=== PATIENT | female | born 1935 | race Caucasian/White ===

== ENCOUNTER 2017-05-16 12:25 | Inpatient (IN) | payer OTHER ==
[2017-05-16] MEDS ORDERED: BACITRACIN 0.9 GM PACKET OINT TOPICAL ONE (13:12)
[2017-05-16] MEDS ORDERED: NORMAL SALINE 10 ML SYRINGE FLUSH IVP PRN ×4 (13:14→20:37)
[2017-05-16] MEDS ORDERED: Sodium Chloride 0.9% 1,000 ML PRIMARY IV ONE ×2 (13:14→13:15)
[2017-05-16] MEDS ORDERED: ONDANSETRON 4 MG/2 ML VIAL IVP ONE (13:14)
--- NOTE | 2017-05-16 13:20 | DI ---
XR HIP COMPLETE MIN 2VW U/L,05/16/2017 12:37 PM: Clinical History: Fall with left hip pain. Previous Exam: None at this facility. Findings: 3 views of the left hip are obtained, and demonstrate a slightly displaced subcapital left femoral ne ck fracture. A nonobstructive bowel gas pattern is seen. Mild degenerative changes of the lumbar spine are noted. No pathologic calcifications are seen. Impression: Left subcapital femoral neck fracture.
--- NOTE | 2017-05-16 13:31 | PDOC ---
Lower Extremity Injury HPI - General Chief Complaint: Lower Extremity Problem/Injury Stated Complaint: FALL Date Seen by Provider: 05/16/17 Time Seen by Provider: 12:30 Source: POSITIVE: Patient Exam Limitations: POSITIVE: No limitations Nurse's Notes Reviewed & Considered: Yes - History of Present Illness Initial Comments: The patient is a 81-year-old female who presents to the emergency department with left hip pain after a fall. She states that she was outside walking. She states that her legs were moving faster than she was and she lost her balance and fell. She landed primarily on her left hip. She also scraped her right wrist. She states that she was able to assist herself back to a standing position using a mailbox. She subsequently was able to walk back home slowly using the fence to assist her which was about a block and a half. She states that after getting home her left hip seem to be hurting even more and she now has a hard time even moving the left leg at the hip joint. She denies hitting her head and denies any loss of consciousness. She does have a scrape on her right wrist however denies wrist pain. She does have a history of osteoporosis. She does not take any blood thinner medications. Have you received a tetanus shot in the past 10 years?: Unknown - Patient Home Medications Home Medications: Home Medications Latanoprost [Xalatan] 1 drop OP QHS drop 04/19/16 Losartan Potassium 1 tab PO DAILY tab 04/19/16 - Patient Allergies Allergies/Adverse Reactions: Allergies Allergy/AdvReac Type Severity Reaction Status Date / Time Penicillins AdvReac Unknown NOT Verified 05/16/17 18:40 APPLICABLE Past Medical History - heen HEENT History: Glaucoma Cardiovascular History: Hypertension Respiratory History: Denies History Gastrointestinal History: Denies History Genitourinary History: Denies History Endocrine History: Denies History Musculoskeletal History: Arthritis Prosthesis or Implant: No Neurological History: Denies History Blood Disorders: Denies History Psychiatric History: Denies History History of Sexually Transmitted Diseases: No Female Reproductive History: Denies History Obstetrical History: Denies History Cancer History: Denies History In Past Year Been Physically Harmed or Verbally Threatened: No History of MDRO: No History of Other Communicable Diseases: No Tobacco Use: Never Smoker Alcohol Use: Rarely Substance Use Type: None Previous Surgical History: No Anesthesia Reactions: No Malignant Hyperthermia: No Family History of Malignant Hyperthermia: No Significant Family History: No pertinent family hx Past Medical History Reviewed: Reviewed - No Changes ROS - Limitations ROS Limitations: No Limitations Constitution: DENIES: Chills, Fever Cardiovascular: REPORTS: Denies Cardiac Symptoms Respiratory: REPORTS: Denies Resp Symptoms Neurological: REPORTS: Denies Neuro Symptoms Gastrointestinal: REPORTS: Denies GI Symptoms Musculoskeletal: REPORTS: Other (Scrape to the right wrist and left hip pain). DENIES: Back Pain, Neck Pain Eyes: REPORTS: Denies Symptoms ENT: REPORTS: Denies Symptoms Lower Ext Complaint Exam - General Appearance General Appearance: POSITIVE: Alert, Cooperative, No Acute Distress - Extremities Lower Extremity: POSITIVE: Other (Examination left lower extremity reveals no evidence of shortening or rotation, she has no tenderness to the knee or distal leg/ankle. She does have some mild tenderness to compression of the pelvis on the left side. She does have pain with any range of motion of the left hip, good dorsalis pedis pulse in the left foot. Examination of the right wrist reveals an abrasion approximately 2-3 cm in diameter with no active bleeding, good range of motion and no bony tenderness or deformity.) Neurovascular/Tendon: POSITIVE: Sensation Normal, Motor Normal, No Vascular Compromise - HEENT HEENT: POSITIVE: Head Inspection Nml - Neck / Back Neck/Back: POSITIVE: Normal Inspection, Non-Tender - Respiratory / CVS Respiratory / CVS: POSITIVE: Chest Non Tender, Breath Sounds Normal, No Respiratory Distress, Heart Sounds Normal, Regular Rate/Rhythm Peripheral Pulses: Dorsalis-pedis (L): 2+ - Abdomen Abdomen: Soft: (All Quadrants), Denies Tenderness: (All Quadrants), No Distention: (All Quadrants) Lower Ext Complaint Progress - Results Reviewed by me Xrays/CTs/US Reviewed by me: Yes Discussed with Radiologist: Yes Radiology Findings: X-ray of the left hip reveals a left femoral neck fracture which is minimally displaced and impacted, no other acute abnormalities per radiologist. Lab Results:: Laboratory Results 05/16/17 05/16/17 Range/Units 13:00 13:31 WBC 9.69 (4.8-10.8) 10^3/uL RBC 4.43 (4.20-5.40) 10^6/uL Hgb 13.0 (12.0-16.0) g/dL Hct 38.5 (37.0-47.0) % MCV 86.9 (81-99) FL MCH 29.3 (27-31) PG MCHC 33.8 (33-37) g/dL RDW Std Deviation 41.6 (39-50) fL RDW Coeff of Tucker 13.4 (11.5-14.5) % Plt Count 322 (140-350) 10*3/uL MPV 10.6 (7.4-12.2) FL Immature Gran % (Auto) 0.2 (0-5) % Neut % (Auto) 75.8 (50-80) % Lymph % (Auto) 14.0 (10-50) % [place] % (Auto) 8.8 (5-15) % Eos % (Auto) 0.9 (0-8) % Baso % (Auto) 0.3 (0-1) % Immature Gran # (Auto) 0.02 10*3/UL Neut # (Auto) 7.34 10*3/UL Lymph # (Auto) 1.36 10*3/uL [place] # (Auto) 0.85 H (0.3-0.8) 10*3/UL Eos # (Auto) 0.09 10*3/UL Baso # (Auto) 0.03 10*3/UL WBC Morphology Comment Normal morphology (NORM) Plt Morphology Comment Normal morphology (NORM) RBC Morph Comment Normal morphology (NORM) PT 10.0 (9.7-11.4) secs INR 0.94 (0.00-5.90) N/A Sodium 132 L (135-145) meq/L Potassium 4.2 (3.8-5.2) meq/L Chloride 100 (98-112) meq/L Carbon Dioxide 23 (23-33) meq/L Anion Gap 9 (5-20) BUN 13 (7-22) mg/dL Creatinine 0.6 (0.50-1.20) mg/dL Estimated GFR (>60 ml/min/1.73m(2)) BUN/Creatinine Ratio 21.66 H (6-20) Glucose 95 (78-110) mg/dL Calculated Osmolality 273.0 (267-292) mOsm/kg Calcium 9.1 (8.7-10.7) mg/dL Total Bilirubin 0.6 (0.3-1.2) mg/dL AST 24 (8-39) IU/L ALT 26 (9-52) IU/L Alkaline Phosphatase 49 (38-126) IU/L Total Protein 6.9 (6.1-8.0) g/dL Albumin 4.2 (3.5-4.8) g/dL Globulin 2.7 (2.50-4.10) g/dL Albumin/Globulin Ratio 1.50 (1.3-2.0) mg/g - Patient's Progress MDM / ED Course: X-rays were obtained shortly after arrival and confirm that she does have a left femoral neck fracture. An IV was subsequently established and the patient did receive morphine 2 mg and Zofran 4 mg IV for pain. I did contact Dr. Bernal who is on-call for orthopedic surgery. He recommended hospitalist admission and he will see the patient in consultation for her hip. These findings and recommendations were discussed with the patient and her family and the patient is in agreement with this plan. - Consult Counseled: POSITIVE: Patient, Family, RE: Radiology Results, RE: DX Patient Care Time - Estimated PCT Patient Care Time (In Minutes): 30 Vital Signs - VS Reviewed Vital Signs Reviewed: Yes Discharge Clinical Impression: Fracture of femoral neck, left Qualifiers: Qualifier Code: (S72.002A) Fracture of unspecified part of neck of left femur, initial encounter for closed fracture Discharge Disposition: Admit to Inpatient Condition: Fair Date Decision to Admit to Inpatient: 05/16/17 Time Decision to Admit to Inpatient: 01:30
[2017-05-16] MEDS: MORPHINE SULFATE 2 MG/1 ML IVP ONE ×2 (13:38→15:53)
[2017-05-16 13:48] LABS: BASOPHILS # (AUTO) 0.03 10*3/UL; BASOPHILS % (AUTO) 0.3 % (0-1); EOSINOPHILS # (AUTO) 0.09 10*3/UL; EOSINOPHILS % (AUTO) 0.9 % (0-8); HEMATOCRIT 38.5 % (37.0-47.0); LYMPHOCYTES # (AUTO) 1.36 10*3/uL; MEAN CORPUSCULAR HEMOGLOBIN 29.3 PG (27-31); MEAN CORPUSCULAR HGB CONC 33.8 g/dL (33-37); MEAN CORPUSCULAR VOLUME 86.9 FL (81-99); MEAN PLATELET VOLUME 10.6 FL (7.4-12.2); MONOCYTES # (AUTO) 0.85 10*3/UL (0.3-0.8); MONOCYTES % (AUTO) 8.8 % (5-15); NEUTROPHILS # (AUTO) 7.34 10*3/UL; NEUTROPHILS % (AUTO) 75.8 % (50-80); RED BLOOD COUNT 4.43 10^6/uL (4.20-5.40)
[2017-05-16 13:49] LABS: PLATELET MORPHOLOGY COMMENT NORMAL MORPHOLOGY (NORM); RBC MORPHOLOGY COMMENT NORMAL MORPHOLOGY (NORM); WBC MORPHOLOGY COMMENT NORMAL MORPHOLOGY (NORM)
[2017-05-16 13:57] LABS: BUN/CREATININE RATIO 21.66 (6-20); CALCIUM 9.1 mg/dL (8.7-10.7); SERUM ALBUMIN 4.2 g/dL (3.5-4.8)
[2017-05-16] MEDS ORDERED: MORPHINE SULFATE 4 MG/1 ML IVP ONE (14:07)
[2017-05-16] MEDS ORDERED: HYDROmorphone 2 MG/1 ML IVP PRN ×2 (14:43→20:37)
[2017-05-16] MEDS ORDERED: LIDOCAINE W/ SODIUM BICARB 0.5 ML SYR SUBD PRN (14:43)
[2017-05-16] MEDS ORDERED: HYDROcodone-APAP 5 MG -325 MG TABLET PO PRN (14:43)
--- NOTE | 2017-05-16 15:23 | PDOC ---
History and Physical - History of Present Illness Date and Time of Service: 05/16/2017, 1520 Chief Complaint: Fall with left hip pain History of Present Illness: This is a very pleasant 81-year-old female who has underlying hypertension and glaucoma as her major medical issues who was walking today to the mailboxes for her daily exercise routine when she felt like her feet were tangled up and moving faster than she was. She had a fall as a result of this. No chest pain and no shortness breath at the time of the fall. She's not had this happen before and denies any sort of pill roll tremor. She denies any shuffling on a regular basis but states that she tries to shuffle her feet at home so that she does not trip over the dogs. She was able to climb back up holding the mailbox and walked back to her house but started having pain on the left hip. She states it radiated into her groin. Pain medications in the emergency room did help but made her a little hypoxic. Nothing seemed to make it worse although I did note that it seemed worse with movement in the bed on exam. Past Medical History Medical History: 1. Hypertension. 2. Glaucoma Surgical History: 1. Hysterectomy. 2. Appendectomy. 3. Cataracts Pertinent Family History: No family history of heart disease. Past Social History: Does not smoke or drink. . Had 6 children but 3 have passed on. Tobacco Use: Never Smoker Do you dip or chew tobacco: No Substance Use Type: None Alcohol Use: None Medication / Allergies Home Medications: Home Medications Medication Instructions Recorded Confirmed Type Latanoprost [Xalatan] 1 drop OP QHS drop 04/19/16 05/16/17 History Losartan Potassium 1 tab PO DAILY tab 04/19/16 05/16/17 History Allergies/Adverse Reactions: Allergies Allergy/AdvReac Type Severity Reaction Status Date / Time Penicillins AdvReac Unknown NOT Verified 05/16/17 12:33 APPLICABLE Review of Systems - Review of Systems All Systems: Reviewed & No Additional Complaints Except as Stated (I did a 12 point review systems and it is negative other than that discussed in history present illness and that noted below.) - Musculoskeletal Musculoskeletal: REPORTS: Swelling (Right hand swelling with abrasion injury.) Exam - Vitals Vital Signs: Vital Signs Temperature 98.2 F Temperature Source Temporal Artery Scan Pulse Rate [Pulse Oximeter 79 Bilateral Radial] Pulse Rate 72 Respiratory Rate 14 Blood Pressure [Right Arm] 171/81 Blood Pressure 170/83 Pulse Ox 96 Oxygen Flow Rate 3 Oxygen Delivery Method Nasal Cannula - General General Appearance: POSITIVE: No Acute Distress, Cooperative - Head Head Exam: POSITIVE: Normal Inspection, Normocephalic, Atraumatic - Eye Eye Exam: POSITIVE: No Scleral Icterus Results - Labs CBC and BMP: 05/16/17 13:31 05/16/17 13:31 - Imaging Status: Image Reviewed by Me (On my view of the pelvic x-ray the patient has a left-sided subcutaneous O femoral neck fracture.) Assessment and Plan - Patient Problems (1) Fracture of femoral neck, left Current Visit: Yes Status: Acute Qualifiers: Encounter type: initial encounter Fracture type: closed Qualified Description: Closed fracture of neck of left femur, initial encounter Qualifier Code(s): (S72.002A) Fracture of unspecified part of neck of left femur , initial encounter for closed fracture (2) Hypertension Current Visit: Yes Status: Acute Qualifiers: Hypertension type: essential hypertension Qualified Description: Essential hypertension Qualifier Code(s): (I10) Essential (primary) hypertension (3) Glaucoma Current Visit: Yes Status: Acute Qualifiers: Glaucoma type: unspecified Laterality: unspecified laterality Qualified Description: Glaucoma, unspecified glaucoma type, unspecified laterality Qualifier Code(s): (H40.9) Unspecified glaucoma - Assessment / Plan Additional Assessment/Plan Details: Admit the patient. Pain control and antiemetics of the written for. I will keep the patient nothing by mouth until orthopedics sees the patient. Dr. Bernal was notified from the emergency room. It may be that surgery will take place tomorrow and we'll advance diet if that is the case. IV fluids. We'll get an EKG. Hold off on losartan due to the perioperative association with renal failure and prerenal azotemia When necessary medications for blood pressure control. I think the patient will likely need rehabilitation. DVT prophylaxis as per orthopedics. Patient doesn't want catheter placed until time of surgery. Check CBC tomorrow. patient is DO NOT RESUSITATE, I discussed with patient. Patietn agrees with the plan.
--- NOTE | 2017-05-16 15:45 | EKG ---
[address] [address] Measurements Intervals [place] Rate: 77 P: 71 WI: 174 QRS: 64 QRSD: 84 T: 69 QT: 389 QTc: 421 Interpretive Statements SINUS RHYTHM POSSIBLE RIGHT ATRIAL ENLARGEMENT LEFT ATRIAL ENLARGEMENT No previous ECG available for comparison Electronically Signed On 05-16-17 17:16:40 MDT by Agustin Newman [email or web address]
[2017-05-16] MEDS: Sodium Chloride 0.9% 1,000 ML PRIMARY IV SCH (15:54)
[2017-05-16] MEDS: ONDANSETRON 4 MG/2 ML VIAL IVP PRN ×2 (17:07→23:50)
[2017-05-16] MEDS ORDERED: Lactated Ringers 1,000 ML PRIMARY IV ONE ×2 (17:20→18:59)
[2017-05-16] MEDS ORDERED: MIDAZOLAM 5 MG/1 ML ONE (18:09)
[2017-05-16] MEDS ORDERED: ceFAZolin Inj 2gm (Premix) 50 ML IV ONE (18:10)
[2017-05-16] MEDS ORDERED: Sodium Chloride 0.9% vial 10 ML ONE (18:14)
[2017-05-16] MEDS ORDERED: MORPHINE SULFATE/PF 10 MG/10 ML AMPULE ONE (18:21)
--- NOTE | 2017-05-16 18:25 | DI ---
XR WRIST 2 VW,05/16/2017 5:47 PM: Clinical History: Right wrist pain Previous Exam: None at this facility. Findings: 2 views of the right wrist are obtained, and demonstrate diffuse osteopenia. Diffuse degenerative misty nges are noted worst at the first carpometacarpal joint consistent with osteoarthritis. The navicular is not well seen on this exam, but no fractures are identified. The lateral view, the distal ulna appears to be posteriorly displaced. This could be a true dislocati on of the distal radial ulnar joint, or projectional artifact. Impression: 1. No visible fracture. 2. Possible displacement of the distal right ulna. This could represent a distal radial ulnar joint d islocation. Correlate clinically. These findings discussed with Dr. Bernal of Orthopedics.
[2017-05-16 18:40] LABS: BILIRUBIN,URINE NEGATIVE (NEG); CLARITY,URINE CLEAR (CLEAR); COLOR,URINE YELLOW; GLUCOSE, URINE (UA) NEGATIVE (NEG); NITRATE,URINE NEGATIVE (NEG); OCCULT BLOOD,URINE Trace-intact (NEG); PROTEIN,URINE NEGATIVE (NEG); UROBILINOGEN,URINE 0.2 EU/dL (0.2)
[2017-05-16 18:43] LABS: BACTERIA,URINE RARE; RBC,URINE 0-2 /hpf; URINE SAMPLE TYPE CATH SPECIMEN; WBC,URINE 0-2
[2017-05-16] MEDS ORDERED: BUPIVACAINE 0.25% W/ EPI - 10 ML VIAL ONE (19:47)
[2017-05-16] MEDS ORDERED: BISACODYL 10 MG SUPPOSITORY RECTAL PRN (20:33)
[2017-05-16] MEDS ORDERED: MAG HYDROX/AL HYDROX/SIMETH 30 ML SUSP PO PRN (20:33)
[2017-05-16] MEDS ORDERED: Prochlorperazine Tab 10 MG TAB PO PRN (20:33)
[2017-05-16] MEDS ORDERED: Ondansetron ODT Tab 8 MG TAB PO PRN (20:33)
[2017-05-16] MEDS ORDERED: ACETAMINOPHEN 325 MG TABLET PO PRN (20:33)
[2017-05-16] MEDS ORDERED: BISACODYL 5 MG TABLET PO PRN (20:33)
[2017-05-16] MEDS ORDERED: diphenhydrAMINE 25 MG CAPSULE PO PRN (20:33)
[2017-05-16] MEDS ORDERED: ONDANSETRON 4 MG/2 ML VIAL IVP PRN (20:33)
[2017-05-16] MEDS ORDERED: oxyCODONE-ACETAMINOPHEN 5-325 TAB PO PRN (20:33)
[2017-05-16] MEDS ORDERED: IBUPROFEN 400 MG TABLET PO PRN (20:33)
[2017-05-16] MEDS ORDERED: MORPHINE SULFATE 2 MG/1 ML IVP PRN (20:33)
[2017-05-16] MEDS ORDERED: CALCIUM CARBONATE 500 MG (TUMS) CHEWABLE TABLET PO PRN ×2 (20:33)
[2017-05-16] MEDS ORDERED: Nalbuphine Inj 20 MG/ML Ampule IVP PRN (20:37)
--- NOTE | 2017-05-16 20:41 | CRNA.PROCE ---
Central Neuraxis Block Placemt - - Safety Measures: Time Out Taken, Site Verified - - Type of Block: Subarachnoid Reason for Block: Surgical Moniters Used During Block: EKG, SPO2, NIBP Sedation Used - Enter Amount Used in Comment Field: Midazolam (mg): Yes (1mg) Positioning: Lateral Skin Prep Used: ChloroPrep Draped: No Skin Infiltration - Enter Amount Used in Comment Field: 1% Xylocaine (mL): Yes ( skin wheal) Spinal Needle Used: 25 Ba 80 mm Local Anesthetic - Enter Amount Used in Comment Field: 0.75 % Bupivacaine with Dextrose (ml): Yes (7.5mg) Additive Used - Enter Amount Used in Comment Field: Preservative Free Morphine ( mg): Yes (100mcg) Bioclusive Dressing Applied: No - - Additional Details: positive birefringence
[2017-05-16] MEDS ORDERED: Lactated Ringers 1,000 ML PRIMARY IV SCH ×2 (20:45)
--- NOTE | 2017-05-16 20:52 | PDOC(PROG) ---
General Note Progress Note: BRIEF OP NOTE PRE-OP DIAGNOSIS: Left subcapital femoral neck fracture - valgus impacted POST-OP DIAGNOSIS: Same SURGERY: ORIF Left Hip Fracture SURGEON: Jovanni Bernal MD ANESTHESIA: Spinal with IV sedation BLOOD LOSS: 10ml SPECIMENS: None IMPLANTS: 7mm x 85mm, 7mm x 85mm, and 7mm x 90mm Canulated Partially Threaded Screws. COMPLICATIONS: None
--- NOTE | 2017-05-16 20:57 | PDOC(PROG) ---
General Note Progress Note: ORTHO CONSULT NOTE: See dictated note to follow for details. IMP: 81yo female with left valgus impacted sub-capital femoral neck fracture PLAN: ORIF with canulated screws POSTOP: Patient is WBAT LLE. DVT prophylaxis with SCDs, and chemical prophylaxis - aspirin sufficient when she goes home if moving well. Jovanni Bernal MD Orthopedic Surgery
[2017-05-16] MEDS ORDERED: BRIMONIDINE TARTRATE OP SCH (21:00)
[2017-05-16] MEDS ORDERED: MORPHINE SULFATE 4 MG/1 ML IVP PRN (21:44)
[2017-05-16] MEDS: LATANOPROST 0.005% 2.5 ML EYE DROPS EACH EYE SCH (21:45)
[2017-05-16] MEDS ORDERED: MORPHINE SULFATE 10 MG/1 ML IV PRN (21:45)
[2017-05-16] MEDS: DOCUSATE 100 MG CAPSULE PO SCH (22:04)
[2017-05-17] MEDS: Sodium Chloride 0.9% 1,000 ML PRIMARY IV SCH ×3 (01:30→18:28)
[2017-05-17] MEDS: ceFAZolin Inj 2gm (Premix) 2 GM in Dextrose 1 BAG IV SCH ×2 (03:13→10:05)
[2017-05-17 05:41] LABS: BASOPHILS # (AUTO) 0.01 10*3/UL; BASOPHILS % (AUTO) 0.1 % (0-1); EOSINOPHILS # (AUTO) 0 10*3/UL; EOSINOPHILS % (AUTO) 0 % (0-8); HEMATOCRIT 35.9 % (37.0-47.0); LYMPHOCYTES # (AUTO) 0.63 10*3/uL; MEAN CORPUSCULAR HEMOGLOBIN 29.3 PG (27-31); MEAN CORPUSCULAR HGB CONC 33.4 g/dL (33-37); MEAN CORPUSCULAR VOLUME 87.8 FL (81-99); MONOCYTES # (AUTO) 1.03 10*3/UL (0.3-0.8); MONOCYTES % (AUTO) 7.7 % (5-15); NEUTROPHILS # (AUTO) 11.63 10*3/UL; NEUTROPHILS % (AUTO) 87.3 % (50-80); RED BLOOD COUNT 4.09 10^6/uL (4.20-5.40)
[2017-05-17 05:44] LABS: CALCIUM 7.7 mg/dL (8.7-10.7)
[2017-05-17 06:05] LABS: PLATELET MORPHOLOGY COMMENT NORMAL MORPHOLOGY (NORM); RBC MORPHOLOGY COMMENT NORMAL MORPHOLOGY (NORM); WBC MORPHOLOGY COMMENT NORMAL MORPHOLOGY (NORM)
[2017-05-17] MEDS: ONDANSETRON 4 MG/2 ML VIAL IVP PRN (07:03)
[2017-05-17] MEDS: PANTOPRAZOLE 40 MG TABLET PO SCH (07:08)
[2017-05-17] MEDS ORDERED: Metoclopramide Inj 10 MG/2 ML VIAL IVP PRN ×2 (07:16→14:54)
--- NOTE | 2017-05-17 07:29 | PDOC(PROG) ---
Date and Time of Service: 05/17/2017 Interval History: Subjective Patient complain from intermittent nasuea since she had the surgery. Otherwise she is denying other symptoms, no hip pain, no pain in the wrist no chest pain and no shortness of breath. No abdominal pain. Objective : Data - Labs CBC and BMP: 05/17/17 04:27 05/17/17 04:27 Labs - Last 24 Hours: Laboratory Results 05/16/17 05/16/17 05/17/17 Range/Units 17:07 18:37 04:27 WBC 13.32 H (4.8-10.8) 10^3/uL RBC 4.09 L (4.20-5.40) 10^6/uL Hgb 12.0 (12.0-16.0) g/dL Hct 35.9 L (37.0-47.0) % MCV 87.8 (81-99) FL MCH 29.3 (27-31) PG MCHC 33.4 (33-37) g/dL RDW Std Deviation 41.9 (39-50) fL RDW Coeff of Tucker 13.3 (11.5-14.5) % Plt Count 294 (140-350) 10*3/uL MPV 11.0 (7.4-12.2) FL Immature Gran % (Auto) 0.2 (0-5) % Neut % (Auto) 87.3 H (50-80) % Lymph % (Auto) 4.7 L (10-50) % [place] % (Auto) 7.7 (5-15) % Eos % (Auto) 0 (0-8) % Baso % (Auto) 0.1 (0-1) % Immature Gran # (Auto) 0.02 10*3/UL Neut # (Auto) 11.63 10*3/UL Lymph # (Auto) 0.63 10*3/uL [place] # (Auto) 1.03 H (0.3-0.8) 10*3/UL Eos # (Auto) 0 10*3/UL Baso # (Auto) 0.01 10*3/UL WBC Morphology Comment Normal morphology (NORM) Plt Morphology Comment Normal morphology (NORM) RBC Morph Comment Normal morphology (NORM) Sodium 133 L (135-145) meq/L Potassium 4.0 (3.8-5.2) meq/L Chloride 99 (98-112) meq/L Carbon Dioxide 25 (23-33) meq/L Anion Gap 9 (5-20) BUN 12 (7-22) mg/dL Creatinine 0.5 (0.50-1.20) mg/dL Estimated GFR (>60 ml/min/1.73m(2)) BUN/Creatinine Ratio 24.00 H (6-20) Glucose 135 H (78-110) mg/dL Calculated Osmolality 277.0 (267-292) mOsm/kg Calcium 7.7 L (8.7-10.7) mg/dL Ur Collection Type Cath specimen Urine Color Yellow Urine Clarity Clear (CLEAR) Urine pH 7.0 (5.0-8.5) Ur Specific [place] 1.015 (1.005-1.030) Urine Protein Negative (NEG) mg/dl Urine Glucose (UA) Negative (NEG) mg/dL Urine Ketones 15 (NEG) Urine Occult Blood Trace-intact H (NEG) Urine Nitrate Negative (NEG) Urine Bilirubin Negative (NEG) Urine Urobilinogen 0.2 (0.2) EU/dL Ur Leukocyte Esterase Trace (NEG) Urine RBC 0-2 (NONE) /hpf Urine WBC 0-2 (NONE) Ur Squamous Epith Cells None (NONE) Ur Renal Epithelial Cell None (NONE) Urine Crystals None Urine Bacteria Rare (NONE) Urine Casts None (NONE) Urine Mucus None (NONE) Urine Trichomonas None (NONE) Urine Yeast None (NONE) Ur Culture Indicated? Culture not set Blood Type A POSITIVE Antibody Screen Negative Objective : Exam - General General Appearance: Cooperative, Thin Additional General Exam Details: dry heaving. - Head Head Exam: Normal Inspection - Eye Eye Exam: Normal Appearance - ENT ENT Exam: Normal Exam - Neck Neck Exam: Normal Inspection - Respiratory Additional Respiratory Exam Details: minimal crackles at the bases - Cardiovascular Cardiovascular Exam: RRR - GI/Abdominal GI/Abdominal Exam: Normal Bowel Sounds, Non Tender, Non Distended, Soft - Rectal Rectal Exam: Deferred - External Exam: Deferred Exam: Deferred - Extremities Extremities Exam: Normal Inspection - Back Back Exam: Normal Inspection - Neurological Neurological Exam: Alert, Oriented x 3, Normal Gait, Speech Intact / Clear - Psychiatric Psychiatric Exam: Normal Affect Assessment and Plan - Patient Problems (1) Status post-operative repair of hip fracture Current Visit: Yes Status: Acute Comment: Continue curreny pain medications, she is compaining from nausea will write for reglan IV as needed. Continue Zofran. Fo DVT prophylaxis DR su put her on Aspirin and SCDs. (2) Hypertension Current Visit: Yes Status: Acute Comment: Will hold Losartan tonigh and watch her BP if start to go up will restart. Qualifiers: Hypertension type: essential hypertension Qualified Description: Essential hypertension Qualifier Code(s): (I10) Essential (primary) hypertension
--- NOTE | 2017-05-17 08:29 | CRNA.PROGR ---
Anesthesia Note Anesthesia Progress Note: Post OP Anesthesia Note Pt is resting in bed, she is complaining of nausea this morning but denies any pain. She received a dose of zofran and the nausea is subsiding. Otherwise the patient is doing well this morning. Current VSS. Vital Signs (Last 8 hours) Temp Pulse Resp BP Pulse Ox 05/17/17 07:25 97.6 F 91 17 145/74 94 05/17/17 07:00 94 14 05/17/17 05:20 93 05/17/17 05:00 97.4 F 100 16 134/63 94 05/17/17 00:47 97.4 F 87 16 156/75 94
[2017-05-17] MEDS: CHOLECALCIFEROL 1000 IU TABLET PO SCH (09:25)
[2017-05-17] MEDS: DOCUSATE 100 MG CAPSULE PO SCH ×2 (09:26→20:22)
[2017-05-17] MEDS: ASPIRIN 325 MG EC TABLET PO SCH ×2 (09:26→20:22)
--- NOTE | 2017-05-17 09:38 | DI ---
XR HIP COMPLETE MIN 2VW U/L,05/16/2017 8:41 PM: Clinical History: Postoperative views of Previous Exam: May 16, 2017 Findings: AP and crosstable lateral views of the left hip are obtained, and demonstrate lag screw fixation of t he subcapital left femoral neck fracture. Impression: Status post lag screw fixation of the left femoral neck fracture.
--- NOTE | 2017-05-17 11:49 | PTI REPORT ---
Thank you for the referral of Rachel Timmons. She was seen on 05/17/17 for an inpatient evaluation secondary to left hip fracture and subsequent pinning. SUBJECTIVE: The patient is a 81-year-old female. The patient reports she is nauseated, lightheaded, and just wants to sleep. She is not sure if she is willing to participate in therapy today. The patient reports she lives at home with her daughter. Her daughter cooks dinner. The patient states she is independent with bathing, dressing, and remainder of cooking at home. The patient states she ambulates within the house with a RollAider when she feels she needs it. She states she also has a cane which she uses for community ambulation when she also feels she needs it. The patient has two steps to enter home with two hand rails. The patient denies any difficulties with ADLs or iADLs. PAST MEDICAL HISTORY: Past medical history can be found in the patient's medical record. OBJECTIVE FINDINGS: General observations: The patient was found in room on two liters of oxygen with 98% oxygen saturation. Oxygen saturation never dipped below 92% throughout today's treatment session. Bed mobility: The patient is able to complete supine to sit transfer with modified independence and use of hand rail. Balance: The patient demonstrates fair plus dynamic sitting balance and good minus static sitting balance. Range of motion: Range of motion is within functional limits throughout bilateral upper and lower extremities except left hip flexion. Strength: Manual muscle testing reveals strength of 4/5 throughout right lower extremity except dorsiflexion which is 4+/5. Left dorsiflexion and great toe extension is 5/5. Left knee extension/flexion is 4-/5. Left hip flexion is 4-/ 5. Hip adduction is 5/5 and abduction is 3+/5. Ambulation: The patient was unable to ambulate today as she was unwilling to participate secondary to nausea and lightheadedness. ASSESSMENT: The patient has subjective and objective findings consistent with left hip pinning. The patient is a good candidate for continued skilled care to address below goals and objectives to discharge patient safely to home and in the community. Short-Term Goals: To be met by discharge from inpatient: Patient will be able to demonstrate 4/5 bilateral lower extremity strength throughout for carry over for ambulation and transfers. Patient will be able to ambulate with least restrictive assistive device x150 feet for ambulation within the home with supervision. Patient will be able to demonstrate fair dynamic and static standing balance as well as good dynamic and static sitting balance. Patient will be able to negotiate two stairs with hand rails, up and down with independence. Long-Term Goals: To be met following discharge from inpatient: Patient will be able to demonstrate 4+/5 bilateral lower extremity strength for carry over for transfers and ambulation. Patient will be able to ambulate 300 feet with least restrictive assistive device and independence. Patient will be able to demonstrate good static and dynamic standing balance. TREATMENT PLAN: Patient will be seen B.I.D during the week and one time per day over the weekend as an inpatient to address the above goals and objectives. INITIAL TREATMENT: Treatment today consisted of the initial evaluation followed by bed mobility activities sitting edge of bed and range of motion activities prior to the patient getting nauseous and lightheaded. The patient did pursed lipped breathing but still felt nauseated and lightheaded and at this point the patient declined to participate in further sitting or ambulation activities. The patient then completed sit to supine bed mobility with modified independence. The patient was then able to complete range of motion and manually resisted activities throughout lower extremities. The patient also had a negative Na's sign and 1+ dorsal pedal pulses. MTDD
[2017-05-17] MEDS ORDERED: Prochlorperazine Edisylate Inj 10mg/2ml vial IVP ONE (15:30)
[2017-05-17] MEDS ORDERED: BUTORPHANOL TARTRATE 2 MG/1 ML VIAL IVP ONE (15:30)
[2017-05-17] MEDS: KETOROLAC 15 MG/1 ML VIAL IVP PRN (16:28)
--- NOTE | 2017-05-17 16:29 | CRNA.PROGR ---
Anesthesia Note Anesthesia Progress Note: Pt reported to be intermittantly nauseated today. Rates pain at a 2 or 3 so believe that nausea is caused bu Duramorph of 100 mcgs in SAB yesterday. Meds ordered, however hospitalist doesn't care for my choice. 24 hoour of Duramorph nearly up. Abnormal Lab Results (Last 24 Hours) Range/Units 05/16/17 05/17/17 18:37 04:27 WBC (4.8-10.8) 10^3/uL 13.32 H RBC (4.20-5.40) 10^6/uL 4.09 L Hct (37.0-47.0) % 35.9 L Neut % (Auto) (50-80) % 87.3 H Lymph % (Auto) (10-50) % 4.7 L [place] # (Auto) (0.3-0.8) 10*3/UL 1.03 H Sodium (135-145) meq/L 133 L BUN/Creatinine Ratio (6-20) 24.00 H Glucose (78-110) mg/dL 135 H Calcium (8.7-10.7) mg/dL 7.7 L Urine Occult Blood (NEG) Trace-intact H Believe that Duramorph nearly done with side effects, otherwise doing well
[2017-05-17] MEDS: LATANOPROST 0.005% 2.5 ML EYE DROPS EACH EYE SCH (20:23)
[2017-05-18] MEDS: Sodium Chloride 0.9% 1,000 ML PRIMARY IV SCH ×4 (01:00→18:28)
[2017-05-18] MEDS: PANTOPRAZOLE 40 MG TABLET PO SCH (07:07)
--- NOTE | 2017-05-18 08:27 | PT.PROG ---
Progress Note Progress Note: S: Pt. states she is doing ok. Nursing states she has sat at the edge of the bed this afternoon with them. She reports some nausea but overall doing as good as can be expected. O: Treatment consisted of therapeutic exercises: B LE 10x each: qs, hs, saq, hip abd/add, ankle pumps, bed mobility from supine to sit with min assist x 1 and sit to stands x 2. She then side scooted up the bed and transfer from sit to supine. Pt. was placed in bed comfortably, SCD's placed and bed alarm set. Nursing was notified. A: Pt. was able to perform all LE exercises without assist. She is doing great with bed mobility requiring little assist. She is hesitant with sit to stands and does require CGA x 1. P: Continue per POC to increase strength and activity tolerance. Chelsi Persaud, CEMENT [employer] CONCRET[employer] FINISHING SUPERVISOR
[2017-05-18] MEDS: ASPIRIN 325 MG EC TABLET PO SCH ×2 (08:32→21:20)
[2017-05-18] MEDS: CHOLECALCIFEROL 1000 IU TABLET PO SCH (08:32)
[2017-05-18] MEDS: DOCUSATE 100 MG CAPSULE PO SCH ×2 (08:32→21:19)
[2017-05-18] MEDS: KETOROLAC 15 MG/1 ML VIAL IVP PRN ×2 (08:33→14:54)
[2017-05-18] MEDS: ACETAMINOPHEN 325 MG TABLET PO PRN ×2 (08:33→14:54)
[2017-05-18 08:43] LABS: BASOPHILS # (AUTO) 0.02 10*3/UL; BASOPHILS % (AUTO) 0.2 % (0-1); EOSINOPHILS # (AUTO) 0.08 10*3/UL; EOSINOPHILS % (AUTO) 0.8 % (0-8); HEMATOCRIT 31.8 % (37.0-47.0); HEMOGLOBIN 10.4 g/dL (12.0-16.0); LYMPHOCYTES # (AUTO) 0.72 10*3/uL; MEAN CORPUSCULAR HEMOGLOBIN 29.2 PG (27-31); MEAN CORPUSCULAR HGB CONC 32.7 g/dL (33-37); MEAN CORPUSCULAR VOLUME 89.3 FL (81-99); MEAN PLATELET VOLUME 10.6 FL (7.4-12.2); MONOCYTES # (AUTO) 1.03 10*3/UL (0.3-0.8); MONOCYTES % (AUTO) 9.7 % (5-15); NEUTROPHILS # (AUTO) 8.72 10*3/UL; NEUTROPHILS % (AUTO) 82.2 % (50-80); RED BLOOD COUNT 3.56 10^6/uL (4.20-5.40)
[2017-05-18 09:07] LABS: PLATELET MORPHOLOGY COMMENT NORMAL MORPHOLOGY (NORM); RBC MORPHOLOGY COMMENT NORMAL MORPHOLOGY (NORM); WBC MORPHOLOGY COMMENT NORMAL MORPHOLOGY (NORM)
[2017-05-18 09:08] LABS: CALCIUM 7.3 mg/dL (8.7-10.7)
[2017-05-18] MEDS: ONDANSETRON 4 MG/2 ML VIAL IVP PRN (10:00)
--- NOTE | 2017-05-18 10:06 | PDOC(PROG) ---
Date and Time of Service: 05/18/2017 10 AM Interval History: Subjective Patient feels a little bit better today compared to yesterday. She did eat. She did sit up and stood up with physical therapy today. Objective : Data - Labs CBC and BMP: 05/18/17 08:35 05/18/17 08:35 Labs - Last 24 Hours: Laboratory Results 05/18/17 Range/Units 08:35 WBC 10.60 (4.8-10.8) 10^3/uL RBC 3.56 L (4.20-5.40) 10^6/uL Hgb 10.4 L (12.0-16.0) g/dL Hct 31.8 L (37.0-47.0) % MCV 89.3 (81-99) FL MCH 29.2 (27-31) PG MCHC 32.7 L (33-37) g/dL RDW Std Deviation 43.0 (39-50) fL RDW Coeff of Tucker 13.6 (11.5-14.5) % Plt Count 237 (140-350) 10*3/uL MPV 10.6 (7.4-12.2) FL Immature Gran % (Auto) 0.3 (0-5) % Neut % (Auto) 82.2 H (50-80) % Lymph % (Auto) 6.8 L (10-50) % [place] % (Auto) 9.7 (5-15) % Eos % (Auto) 0.8 (0-8) % Baso % (Auto) 0.2 (0-1) % Immature Gran # (Auto) 0.03 10*3/UL Neut # (Auto) 8.72 10*3/UL Lymph # (Auto) 0.72 10*3/uL [place] # (Auto) 1.03 H (0.3-0.8) 10*3/UL Eos # (Auto) 0.08 10*3/UL Baso # (Auto) 0.02 10*3/UL WBC Morphology Comment Normal morphology (NORM) Plt Morphology Comment Normal morphology (NORM) RBC Morph Comment Normal morphology (NORM) Sodium 135 (135-145) meq/L Potassium 3.6 L (3.8-5.2) meq/L Chloride 106 (98-112) meq/L Carbon Dioxide 22 L (23-33) meq/L Anion Gap 7 (5-20) BUN 14 (7-22) mg/dL Creatinine 0.5 (0.50-1.20) mg/dL Estimated GFR (>60 ml/min/1.73m(2)) BUN/Creatinine Ratio 28.00 H (6-20) Glucose 120 H (78-110) mg/dL Calculated Osmolality 281.0 (267-292) mOsm/kg Calcium 7.3 L (8.7-10.7) mg/dL Objective : Exam - General General Appearance: No Acute Distress, Cooperative, Thin - Head Head Exam: Normal Inspection - Eye Eye Exam: Normal Appearance - ENT ENT Exam: Normal Exam - Neck Neck Exam: Normal Inspection - Respiratory Respiratory Exam: Clear to Auscultation - Bilaterally - Cardiovascular Cardiovascular Exam: RRR - GI/Abdominal GI/Abdominal Exam: Normal Bowel Sounds, Non Tender, Non Distended, Soft - Rectal Rectal Exam: Deferred - External Exam: Deferred - Extremities Extremities Exam: Normal Inspection - Back Back Exam: Normal Inspection - Neurological Neurological Exam: Alert, Oriented x 3, CN II-XII Intact, Speech Intact / Clear - Psychiatric Psychiatric Exam: Normal Affect Assessment and Plan - Patient Problems (1) Status post-operative repair of hip fracture Current Visit: Yes Status: Acute Comment: We'll start cutting back on her IV fluid and may be DC'd later on today. Continue PT and OT. Nausea seemed to be improved today compared to yesterday. For DVT prophylaxis Dr. Mann put her on aspirin and SCDs. (2) Hypertension Current Visit: Yes Status: Acute Comment: Continue holding blood pressure medication Qualifiers: Hypertension type: essential hypertension Qualified Description: Essential hypertension Qualifier Code(s): (I10) Essential (primary) hypertension
--- NOTE | 2017-05-18 12:45 | OTI REPORT ---
Thank you for the referral of Rachel Timmons. She was seen on 05/18/17 for an occupational therapy inpatient evaluation secondary to a left hip pinning. SUBJECTIVE: The patient is a 81-year-old female. The patient reports that she was walking outdoors when she felt her body get ahead of her feet and she tripped and fell. The patient was able to get up and walk back to her house; however, she later had pain in the hip region. The patient repots she lives with her daughter here in [place], [place]. She does have two steps to the entrance; however, the daughter reports they are putting in a ramp later today. They do have carpet in their home; however, it is low. There is tile in the bathroom with a tub/shower combo. They do have a shower chair available that goes over the tub so that the patient will not have to lift her leg to get in; however, she will have to lift her leg in the seated position. They also have a toilet riser with handles. The patient reports she sleeps in a standard bed and she has a four wheeled walker at home available to her. There are no grab bars within the bathroom. The patient does report that she is able to do her own laundry, cooking, and cleaning. She can get groceries; however, she does not like to drive. 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 PAST MEDICAL HISTORY: Past medical history can be found in the patient's medical record. OBJECTIVE FINDINGS: General observations: The patient was oriented to place and reason for hospitalization; however, she was not oriented to the date or date upon admission to the hospital. At this time the patient is weight-bearing as tolerated. Pain: The patient does not report any pain currently secondary to having a pain pill recently. Range of motion: Upper extremity range of motion bilaterally is within normal limits. Strength: The patient demonstrates a manual muscle grade of 3+/5 for bilateral shoulders, elbows, wrists, and hands. Bed mobility: The patient is able to perform bed mobility tasks with moderate assistance. Transfers: The patient was able to perform a sit to stand transfer from edge of bed with min assist and min cueing to push from the bed instead of the walker. Endurance: The patient was only able to tolerate standing for 30 seconds-1 minute before requiring a rest break and did fatigue quickly today. Activities of daily living: Upper extremity and lower extremity dressing tasks were not completed today secondary to the patient's report that she did not want to complete these tasks. Also, medically the patient is attached to lines and leads. The patient was issued a sock aide and a consumer loan manager as she expressed interest in these items. The patient will be educated on the use of sock aide and consumer loan manager in future therapy sessions. ASSESSMENT: Problem List: Decreased upper extremity strength bilaterally Decreased activity tolerance Decreased safety awareness Patient needs to be educated on use of adaptive equipment Decreased ability to perform activities of daily living Short-Term Goals: To be met by discharge from inpatient: Patient will increase upper extremity strength to 4+/5 bilaterally. Patient will perform all lower extremity dressing tasks to include donning and doffing socks and pants with use of adaptive equipment as needed. Patient will perform all showering tasks seated with adaptive equipment as needed safely while following precautions. Patient will perform toileting tasks with adaptive equipment as needed. Patient will increase activity tolerance to be able to complete entire ADL routine before taking a rest break with adaptive equipment as needed. Long-Term Goals: To be met following discharge from inpatient: Patient will be able to return home to live with her daughter at prior level of functioning with adaptive equipment as needed. TREATMENT PLAN: Patient will be seen B.I.D during the week and one time per day over the weekend as an inpatient to address the above goals and objectives. INITIAL TREATMENT: Treatment today consisted of the initial evaluation followed by bed mobility tasks including moving from supine to sit at edge of bed with mod assist. The patient did need to sit edge of bed x2 minutes due to weakness and reports of feeling dizzy. The patient then completed two sit to stand transfers from edge of bed with the use of a front wheeled walker. The patient was able to tolerate standing with precautions of weight-bearing as tolerated x30 seconds-1 minute. The patient did require a two minute rest break between each task. The patient then performed bed mobility to include moving from edge of bed to supine with mod assist to lift legs. The patient also needed mod assist to scoot up in bed secondary to weakness. GOUVERNEUR HEALTHNatalia
--- NOTE | 2017-05-18 14:41 | PT.PROG ---
Progress Note Progress Note: S. Patient stated that she is feeling pretty good getting a little tired however. O. Patient ambulated 150 feet around the nurses station then back to her room where she was left in her chair with OT for continued therapy. A. Patient tolerated ambulation very well, She required one short standing rest break during ambulation, however was able to ambulate full distance. Patient was fatigued towards the end of the 150 feet. Patient would continue to benefit from skilled therapy to increase strength and endurance. P. Continue POC.
--- NOTE | 2017-05-18 14:56 | OT.PROG ---
Progress Note Progress Note: S: pt stated that she was tired, but she did eat good at lunch. O: pt was seen in her room in the p.m after PT. She sat up in chair and completed UE exercise with RTB to assist with strength for functional sit to stands. She completed exercises in shoulder ext, bicep flex, and EROT all x15. She also completed functional transfer approx 6-8 ft to EOB. pt completed bed mobility Ind. She was left in supine position in bed with alarm on and call light within reach. A: pt may continue to benefit from therapy to increase overall activity tolerance. Once catheter is removed we can begin to work and monitor function of ADL's. P: continue per POC.
[2017-05-18] MEDS: LATANOPROST 0.005% 2.5 ML EYE DROPS EACH EYE SCH (21:20)
[2017-05-19 06:30] LABS: BASOPHILS # (AUTO) 0.05 10*3/UL; BASOPHILS % (AUTO) 0.6 % (0-1); EOSINOPHILS # (AUTO) 0.32 10*3/UL; EOSINOPHILS % (AUTO) 3.9 % (0-8); HEMATOCRIT 30.8 % (37.0-47.0); HEMOGLOBIN 10.2 g/dL (12.0-16.0); LYMPHOCYTES # (AUTO) 1.14 10*3/uL; MEAN CORPUSCULAR HEMOGLOBIN 29.7 PG (27-31); MEAN CORPUSCULAR HGB CONC 33.1 g/dL (33-37); MEAN CORPUSCULAR VOLUME 89.8 FL (81-99); MEAN PLATELET VOLUME 10.6 FL (7.4-12.2); MONOCYTES # (AUTO) 0.93 10*3/UL (0.3-0.8); MONOCYTES % (AUTO) 11.5 % (5-15); NEUTROPHILS # (AUTO) 5.65 10*3/UL; NEUTROPHILS % (AUTO) 69.7 % (50-80); PLATELET MORPHOLOGY COMMENT NORMAL MORPHOLOGY (NORM); RBC MORPHOLOGY COMMENT NORMAL MORPHOLOGY (NORM); RED BLOOD COUNT 3.43 10^6/uL (4.20-5.40); WBC MORPHOLOGY COMMENT NORMAL MORPHOLOGY (NORM)
[2017-05-19 06:36] LABS: CALCIUM 7.4 mg/dL (8.7-10.7)
[2017-05-19] MEDS: PANTOPRAZOLE 40 MG TABLET PO SCH (07:08)
--- NOTE | 2017-05-19 07:19 | PDOC(PROG) ---
Date and Time of Service: 05/19/2017 7:17 AM Interval History: Subjective Patient is denying complaints, no significant pain in the hip no nausea. No shortness of breath. Objective : Data - Labs CBC and BMP: 05/19/17 06:24 05/19/17 06:24 Labs - Last 24 Hours: Laboratory Results 05/18/17 05/19/17 Range/Units 08:35 06:24 WBC 10.60 8.11 (4.8-10.8) 10^3/uL RBC 3.56 L 3.43 L (4.20-5.40) 10^6/uL Hgb 10.4 L 10.2 L (12.0-16.0) g/dL Hct 31.8 L 30.8 L (37.0-47.0) % MCV 89.3 89.8 (81-99) FL MCH 29.2 29.7 (27-31) PG MCHC 32.7 L 33.1 (33-37) g/dL RDW Std Deviation 43.0 43.0 (39-50) fL RDW Coeff of Tucker 13.6 13.6 (11.5-14.5) % Plt Count 237 232 (140-350) 10*3/uL MPV 10.6 10.6 (7.4-12.2) FL Immature Gran % (Auto) 0.3 0.2 (0-5) % Neut % (Auto) 82.2 H 69.7 (50-80) % Lymph % (Auto) 6.8 L 14.1 (10-50) % [place] % (Auto) 9.7 11.5 (5-15) % Eos % (Auto) 0.8 3.9 (0-8) % Baso % (Auto) 0.2 0.6 (0-1) % Immature Gran # (Auto) 0.03 0.02 10*3/UL Neut # (Auto) 8.72 5.65 10*3/UL Lymph # (Auto) 0.72 1.14 10*3/uL [place] # (Auto) 1.03 H 0.93 H (0.3-0.8) 10*3/UL Eos # (Auto) 0.08 0.32 10*3/UL Baso # (Auto) 0.02 0.05 10*3/UL WBC Morphology Comment Normal morphology Normal morphology (NORM) Plt Morphology Comment Normal morphology Normal morphology (NORM) RBC Morph Comment Normal morphology Normal morphology (NORM) Sodium 135 139 (135-145) meq/L Potassium 3.6 L 3.8 (3.8-5.2) meq/L Chloride 106 107 (98-112) meq/L Carbon Dioxide 22 L 25 (23-33) meq/L Anion Gap 7 7 (5-20) BUN 14 15 (7-22) mg/dL Creatinine 0.5 0.5 (0.50-1.20) mg/dL Estimated GFR (>60 ml/min/1.73m(2)) BUN/Creatinine Ratio 28.00 H 30.00 H (6-20) Glucose 120 H 106 (78-110) mg/dL Calculated Osmolality 281.0 288.0 (267-292) mOsm/kg Calcium 7.3 L 7.4 L (8.7-10.7) mg/dL Objective : Exam - General General Appearance: No Acute Distress, Cooperative, Thin - Head Head Exam: Normal Inspection, Atraumatic - Eye Eye Exam: Normal Appearance - ENT ENT Exam: Normal Exam - Neck Neck Exam: Normal Inspection - Respiratory Respiratory Exam: Clear to Auscultation - Bilaterally - Cardiovascular Cardiovascular Exam: RRR - GI/Abdominal GI/Abdominal Exam: Normal Bowel Sounds, Non Tender, Non Distended, Soft - Rectal Rectal Exam: Deferred - External Exam: Deferred - Extremities Extremities Exam: Normal Inspection Additional Extremities Exam Details: Wounds looks healing well. - Back Back Exam: Normal Inspection - Neurological Neurological Exam: Alert, Oriented x 3, CN II-XII Intact, Speech Intact / Clear - Psychiatric Psychiatric Exam: Normal Affect Assessment and Plan - Patient Problems (1) Status post-operative repair of hip fracture Current Visit: Yes Status: Acute Comment: Continue PT and OT. For DVT prophylaxis Dr. Bernal put her on aspirin and SCDs. (2) Hypertension Current Visit: Yes Status: Acute Comment: Continue holding losartan blood pressure acceptable Qualifiers: Hypertension type: essential hypertension Qualified Description: Essential hypertension Qualifier Code(s): (I10) Essential (primary) hypertension (3) Postoperative anemia due to acute blood loss Current Visit: Yes Status: Acute Comment: There is slight drop in the hemoglobin stable. Observe.
[2017-05-19] MEDS: CHOLECALCIFEROL 1000 IU TABLET PO SCH (08:41)
[2017-05-19] MEDS: DOCUSATE 100 MG CAPSULE PO SCH ×2 (08:42→20:39)
[2017-05-19] MEDS: ASPIRIN 325 MG EC TABLET PO SCH (08:42)
--- NOTE | 2017-05-19 10:19 | ORTHO.PROG ---
Last Taken Vital Signs: Vital Signs - Last Taken Temperature 98.1 F 05/19/17 07:20 Pulse Rate 90 05/19/17 07:20 Respiratory Rate 20 05/19/17 07:20 Blood Pressure 159/72 05/19/17 07:20 Pulse Ox 93 05/19/17 07:20 Subjective: Left femoral neck impacted fracture with percutaneous screw placement Objective: Dressings clean and dry no evidence of active issues motor and sensory exam nonfocal. Radiographs obtained during surgery and after surgery show impacted femoral neck fracture with [address] Assessment: Left impacted femoral neck fracture doing well Plan: Continue with physical therapy. Patient will be progressive weightbearing as tolerated with a walker. We'll continue with anticoagulation and since she is doing well and mobilizing well we will consider aspirin when she goes home.
--- NOTE | 2017-05-19 10:21 | ORTHO.PROG ---
Last Taken Vital Signs: Vital Signs - Last Taken Temperature 98.1 F 05/19/17 07:20 Pulse Rate 90 05/19/17 07:20 Respiratory Rate 20 05/19/17 07:20 Blood Pressure 159/72 05/19/17 07:20 Pulse Ox 93 05/19/17 07:20 Subjective: Patient doing well good pain control is doing well with therapy Objective: Rotational leg looks good good hip motion. Incision clean and dry motor and sensory exam nonfocal. X-rays at time of surgery showed impacted fracture with [address] no active issues. Assessment: Left impacted femoral neck fracture doing well, status post percutaneous pinning Plan: Patient will continue with physical therapy Pain control DVT prophylaxis with mechanicals medication.
[2017-05-19] MEDS: ACETAMINOPHEN 325 MG TABLET PO PRN (19:02)
[2017-05-19] MEDS: LATANOPROST 0.005% 2.5 ML EYE DROPS EACH EYE SCH (20:39)
[2017-05-19] MEDS: ENOXAPARIN SODIUM 40 MG/0.4 ML SYRINGE SUBCUT SCH (20:39)
[2017-05-20] MEDS: PANTOPRAZOLE 40 MG TABLET PO SCH (06:30)
[2017-05-20] MEDS: LOSARTAN 25 MG TABLET PO SCH (08:22)
[2017-05-20] MEDS: DOCUSATE 100 MG CAPSULE PO SCH ×2 (08:22→20:16)
[2017-05-20] MEDS: CHOLECALCIFEROL 1000 IU TABLET PO SCH (08:22)
--- NOTE | 2017-05-20 08:37 | PDOC(PROG) ---
Date and Time of Service: 12/18/2016 8:36 AM Interval History: Subjective Patient feels better, no significant pain in the hip, no nausea. No abdominal pain. No shortness of breath. Objective : Data - Labs CBC and BMP: 05/19/17 06:24 05/19/17 06:24 Objective : Exam - General General Appearance: No Acute Distress, Cooperative, Thin - Head Head Exam: Normal Inspection, Atraumatic - Eye Eye Exam: Normal Appearance - ENT ENT Exam: Normal Exam - Neck Neck Exam: Normal Inspection - Respiratory Respiratory Exam: Clear to Auscultation - Bilaterally - Cardiovascular Cardiovascular Exam: RRR - GI/Abdominal GI/Abdominal Exam: Normal Bowel Sounds, Non Tender, Non Distended, Soft - Rectal Rectal Exam: Deferred - External Exam: Deferred - Extremities Extremities Exam: Normal Inspection - Back Back Exam: Normal Inspection - Neurological Neurological Exam: Alert, Oriented x 3, CN II-XII Intact, Moves All Extremities Equally - Psychiatric Psychiatric Exam: Normal Affect Assessment and Plan - Patient Problems (1) Status post-operative repair of hip fracture Current Visit: Yes Status: Acute Comment: Continue PT and OT. (2) Hypertension Current Visit: Yes Status: Acute Comment: Her blood pressure is getting higher we'll restart her losartan Qualifiers: Hypertension type: essential hypertension Qualified Description: Essential hypertension Qualifier Code(s): (I10) Essential (primary) hypertension (3) Postoperative anemia due to acute blood loss Current Visit: Yes Status: Acute Comment: This is mild, will recheck it tomorrow (4) DVT prophylaxis Current Visit: Yes Status: Acute Comment: I spoke with Dr. Resendiz and we decided to switch her to Lovenox so she is on Lovenox now for DVT prophylaxis.
--- NOTE | 2017-05-20 10:56 | OT.PROG ---
Progress Note Progress Note: S: pt stated that she was a little more sore today and that she walked 3 laps around nurses station yesterday. O: Pt was seen in the a.m. She had already completed ADL's as she was dressed and waiting. She completed transfer downstairs with walker and once arrived received heat for 15 min to affected hip. She completed SAQ, LAQ, sit to stands , 2# box, cone exercises, quad sets, heel slides, hip abd/add and bridges all x10. pt returned to her room using walker and only taking one rest break for 4 min. She was left upright in chair with call light within reach. A: pt is progressing well but may continue to benefit from therapy to regain some strength before being d/c'd. pt would benefit from ADL's, one more time to monitor ability. P: continue per plan of care.
--- NOTE | 2017-05-20 15:27 | ORTHO.PROG ---
Last Taken Vital Signs: Vital Signs - Last Taken Temperature 97.6 F 05/20/17 11:22 Pulse Rate 85 05/20/17 11:22 Respiratory Rate 17 05/20/17 11:22 Blood Pressure 169/94 05/20/17 11:22 Pulse Ox 95 05/20/17 11:22 Subjective: Patient notes she's a little sore this morning since she did so much walking but otherwise feels good Objective: Patient with reasonable rotational like she has good hip flexion and extension knee motion is good as well as motor and sensory exam in the lower extremity. Good pulses brisk refill. Dressing clean and dry no evidence of infection Assessment: Status post left impacted femoral neck fracture with percutaneous pinning doing well Plan: Continue with physical therapy and occupational therapy. Possible discharge when able to obtain ability to perform functional needs at home. Continue with Lovenox while in the hospital then if she is moving around well we could switch her to aspirin 325 mg twice a day.
[2017-05-20] MEDS: ENOXAPARIN SODIUM 40 MG/0.4 ML SYRINGE SUBCUT SCH (20:00)
[2017-05-20] MEDS: LATANOPROST 0.005% 2.5 ML EYE DROPS EACH EYE SCH (20:16)
[2017-05-21] MEDS: PANTOPRAZOLE 40 MG TABLET PO SCH (07:52)
[2017-05-21 07:56] VITALS: RESP 18
[2017-05-21] MEDS: LOSARTAN 25 MG TABLET PO SCH (08:46)
[2017-05-21] MEDS: DOCUSATE 100 MG CAPSULE PO SCH (08:46)
[2017-05-21] MEDS: CHOLECALCIFEROL 1000 IU TABLET PO SCH (08:47)
--- NOTE | 2017-05-21 10:14 | OT AM DAY ---
Diagnosis : Left Hip Pinning AM - Occupational Therapy S: The patient states she is ready to get out of her chair and is ready for therapy. The patient states she would like to go home soon. O: The patient was seen in her room. The patient's catheter had been removed; therefore, dressing was performed. The patient needed min assist and demonstration with sock aide and pack worker supervisor, but other than that, dressing was completed with min assist. The patient donned upper extremity clothing with modified independence as it just took her a little longer to complete. The patient completed functional transfer downstairs approximately 60 feet before being transferred the rest of the way in the wheelchair. The patient completed arm bike x2 minutes and received an application of moist heat pack x15 minutes to the left affected hip. The patient also completed heel slides, quad sets, hip abduction, short arc quads, and sit to stands x10 to increase function and strength of that affected hip. The patient then walked to the elevator from therapy, approximately 65 feet. The patient then walked the rest of the way to the room. The patient went to the bathroom and completed a bathroom transfer and was left in chair with call light within reach and chair alarm on. The patient was issued a walker for safety purposes. A: The patient would continue to benefit from therapy to increase her overall activity tolerance and strength. We will continue to monitor her ADLs for more independence. P: Continue seeing patient BID during the week and one time per day over the weekend until discharge. GISSELL
--- NOTE | 2017-05-21 12:31 | PT.PROG ---
Progress Note Progress Note: S. Patient stated that she is feeling good today. O. Patient ambulated 175 feet to the therapy gym where she had heat to her hip and then performed supine exercises in the form of; heel slides, short arc quads , ankle pumps, seated long arc quads, heel toe raises and sit to stands all x 15. Patient ambulated 175 feet back to her room where she was left in her chair with alarm and call light. A. Patient tolerated exercises fair, she continues to struggle with balance and weakness. Patient was able to ambulate the full distance to the therapy gym with contact guard Assist and one seated rest break. She is very impulsive and wants to be as independent as possible. Patient would continue to benefit from skilled therapy to increase independence and strength. P. Continue POC.
--- NOTE | 2017-05-21 13:12 | DCSUMMARY ---
Hospitalization Summary Hospital Course: Final Discharge Diagnosis: Current Visit Problems Problem Status Priority Diagnosed Code DVT prophylaxis Acute [id number] Fracture of femoral neck, left Acute S72.002A Glaucoma Acute H40.9 Hypertension Acute I10 Postoperative anemia due to acute blood loss Acute D62 Status post-operative repair of hip fracture Acute Z98.890, Z87.81 Diagnostic Data, Laboratory Data, and Procedures of Signifigance: Laboratory Results 05/16/17 05/16/17 05/16/17 Range/Units 13:00 13:31 17:07 WBC 9.69 (4.8-10.8) 10^3/uL RBC 4.43 (4.20-5.40) 10^6/uL Hgb 13.0 (12.0-16.0) g/dL Hct 38.5 (37.0-47.0) % MCV 86.9 (81-99) FL MCH 29.3 (27-31) PG MCHC 33.8 (33-37) g/dL RDW Std Deviation 41.6 (39-50) fL RDW Coeff of Tucker 13.4 (11.5-14.5) % Plt Count 322 (140-350) 10*3/uL MPV 10.6 (7.4-12.2) FL Immature Gran % (Auto) 0.2 (0-5) % Neut % (Auto) 75.8 (50-80) % Lymph % (Auto) 14.0 (10-50) % [place] % (Auto) 8.8 (5-15) % Eos % (Auto) 0.9 (0-8) % Baso % (Auto) 0.3 (0-1) % Immature Gran # (Auto) 0.02 10*3/UL Neut # (Auto) 7.34 10*3/UL Lymph # (Auto) 1.36 10*3/uL Will[place] # (Auto) 0.85 H (0.3-0.8) 10*3/UL Eos # (Auto) 0.09 10*3/UL Baso # (Auto) 0.03 10*3/UL WBC Morphology Comment Normal morphology (NORM) Plt Morphology Comment Normal morphology (NORM) RBC Morph Comment Normal morphology (NORM) PT 10.0 (9.7-11.4) secs INR 0.94 (0.00-5.90) N/A Sodium 132 L (135-145) meq/L Potassium 4.2 (3.8-5.2) meq/L Chloride 100 (98-112) meq/L Carbon Dioxide 23 (23-33) meq/L Anion Gap 9 (5-20) BUN 13 (7-22) mg/dL Creatinine 0.6 (0.50-1.20) mg/dL Estimated GFR (>60 ml/min/1.73m(2)) BUN/Creatinine Ratio 21.66 H (6-20) Glucose 95 (78-110) mg/dL Calculated Osmolality 273.0 (267-292) mOsm/kg Calcium 9.1 (8.7-10.7) mg/dL Total Bilirubin 0.6 (0.3-1.2) mg/dL AST 24 (8-39) IU/L ALT 26 (9-52) IU/L Alkaline Phosphatase 49 (38-126) IU/L Total Protein 6.9 (6.1-8.0) g/dL Albumin 4.2 (3.5-4.8) g/dL Globulin 2.7 (2.50-4.10) g/dL Albumin/Globulin Ratio 1.50 (1.3-2.0) mg/g Ur Collection Type Urine Color Urine Clarity (CLEAR) Urine pH (5.0-8.5) Ur Specific Walton (1.005-1.030) Urine Protein (NEG) mg/dl Urine Glucose (UA) (NEG) mg/dL Urine Ketones (NEG) Urine Occult Blood (NEG) Urine Nitrate (NEG) Urine Bilirubin (NEG) Urine Urobilinogen (0.2) EU/dL Ur Leukocyte Esterase (NEG) Urine RBC (NONE) /hpf Urine WBC (NONE) Ur Squamous Epith Cells (NONE) Ur Renal Epithelial Cell (NONE) Urine Crystals Urine Bacteria (NONE) Urine Casts (NONE) Urine Mucus (NONE) Urine Trichomonas (NONE) Urine Yeast (NONE) Ur Culture Indicated? Blood Type A POSITIVE Antibody Screen Negative 05/16/17 05/17/17 05/18/17 Range/Units 18:37 04:27 08:35 WBC 13.32 H 10.60 (4.8-10.8) 10^3/uL RBC 4.09 L 3.56 L (4.20-5.40) 10^6/uL Hgb 12.0 10.4 L (12.0-16.0) g/dL Hct 35.9 L 31.8 L (37.0-47.0) % MCV 87.8 89.3 (81-99) FL MCH 29.3 29.2 (27-31) PG MCHC 33.4 32.7 L (33-37) g/dL RDW Std Deviation 41.9 43.0 (39-50) fL RDW Coeff of Tucker 13.3 13.6 (11.5-14.5) % Plt Count 294 237 (140-350) 10*3/uL MPV 11.0 10.6 (7.4-12.2) FL Immature Gran % (Auto) 0.2 0.3 (0-5) % Neut % (Auto) 87.3 H 82.2 H (50-80) % Lymph % (Auto) 4.7 L 6.8 L (10-50) % Will[place] % (Auto) 7.7 9.7 (5-15) % Eos % (Auto) 0 0.8 (0-8) % Baso % (Auto) 0.1 0.2 (0-1) % Immature Gran # (Auto) 0.02 0.03 10*3/UL Neut # (Auto) 11.63 8.72 10*3/UL Lymph # (Auto) 0.63 0.72 10*3/uL Will[place] # (Auto) 1.03 H 1.03 H (0.3-0.8) 10*3/UL Eos # (Auto) 0 0.08 10*3/UL Baso # (Auto) 0.01 0.02 10*3/UL WBC Morphology Comment Normal morphology Normal morphology (NORM) Plt Morphology Comment Normal morphology Normal morphology (NORM) RBC Morph Comment Normal morphology Normal morphology (NORM) PT (9.7-11.4) secs INR (0.00-5.90) N/A Sodium 133 L 135 (135-145) meq/L Potassium 4.0 3.6 L (3.8-5.2) meq/L Chloride 99 106 (98-112) meq/L Carbon Dioxide 25 22 L (23-33) meq/L Anion Gap 9 7 (5-20) BUN 12 14 (7-22) mg/dL Creatinine 0.5 0.5 (0.50-1.20) mg/dL Estimated GFR (>60 ml/min/1.73m(2)) BUN/Creatinine Ratio 24.00 H 28.00 H (6-20) Glucose 135 H 120 H (78-110) mg/dL Calculated Osmolality 277.0 281.0 (267-292) mOsm/kg Calcium 7.7 L 7.3 L (8.7-10.7) mg/dL Total Bilirubin (0.3-1.2) mg/dL AST (8-39) IU/L ALT (9-52) IU/L Alkaline Phosphatase (38-126) IU/L Total Protein (6.1-8.0) g/dL Albumin (3.5-4.8) g/dL Globulin (2.50-4.10) g/dL Albumin/Globulin Ratio (1.3-2.0) mg/g Ur Collection Type Cath specimen Urine Color Yellow Urine Clarity Clear (CLEAR) Urine pH 7.0 (5.0-8.5) Ur Specific Walton 1.015 (1.005-1.030) Urine Protein Negative (NEG) mg/dl Urine Glucose (UA) Negative (NEG) mg/dL Urine Ketones 15 (NEG) Urine Occult Blood Trace-intact H (NEG) Urine Nitrate Negative (NEG) Urine Bilirubin Negative (NEG) Urine Urobilinogen 0.2 (0.2) EU/dL Ur Leukocyte Esterase Trace (NEG) Urine RBC 0-2 (NONE) /hpf Urine WBC 0-2 (NONE) Ur Squamous Epith Cells None (NONE) Ur Renal Epithelial Cell None (NONE) Urine Crystals None Urine Bacteria Rare (NONE) Urine Casts None (NONE) Urine Mucus None (NONE) Urine Trichomonas None (NONE) Urine Yeast None (NONE) Ur Culture Indicated? Culture not set Blood Type Antibody Screen 05/19/17 Range/Units 06:24 WBC 8.11 (4.8-10.8) 10^3/uL RBC 3.43 L (4.20-5.40) 10^6/uL Hgb 10.2 L (12.0-16.0) g/dL Hct 30.8 L (37.0-47.0) % MCV 89.8 (81-99) FL MCH 29.7 (27-31) PG MCHC 33.1 (33-37) g/dL RDW Std Deviation 43.0 (39-50) fL RDW Coeff of Tucker 13.6 (11.5-14.5) % Plt Count 232 (140-350) 10*3/uL MPV 10.6 (7.4-12.2) FL Immature Gran % (Auto) 0.2 (0-5) % Neut % (Auto) 69.7 (50-80) % Lymph % (Auto) 14.1 (10-50) % [place] % (Auto) 11.5 (5-15) % Eos % (Auto) 3.9 (0-8) % Baso % (Auto) 0.6 (0-1) % Immature Gran # (Auto) 0.02 10*3/UL Neut # (Auto) 5.65 10*3/UL Lymph # (Auto) 1.14 10*3/uL [place] # (Auto) 0.93 H (0.3-0.8) 10*3/UL Eos # (Auto) 0.32 10*3/UL Baso # (Auto) 0.05 10*3/UL WBC Morphology Comment Normal morphology (NORM) Plt Morphology Comment Normal morphology (NORM) RBC Morph Comment Normal morphology (NORM) PT (9.7-11.4) secs INR (0.00-5.90) N/A Sodium 139 (135-145) meq/L Potassium 3.8 (3.8-5.2) meq/L Chloride 107 (98-112) meq/L Carbon Dioxide 25 (23-33) meq/L Anion Gap 7 (5-20) BUN 15 (7-22) mg/dL Creatinine 0.5 (0.50-1.20) mg/dL Estimated GFR (>60 ml/min/1.73m(2)) BUN/Creatinine Ratio 30.00 H (6-20) Glucose 106 (78-110) mg/dL Calculated Osmolality 288.0 (267-292) mOsm/kg Calcium 7.4 L (8.7-10.7) mg/dL Total Bilirubin (0.3-1.2) mg/dL AST (8-39) IU/L ALT (9-52) IU/L Alkaline Phosphatase (38-126) IU/L Total Protein (6.1-8.0) g/dL Albumin (3.5-4.8) g/dL Globulin (2.50-4.10) g/dL Albumin/Globulin Ratio (1.3-2.0) mg/g Ur Collection Type Urine Color Urine Clarity (CLEAR) Urine pH (5.0-8.5) Ur Specific Walton (1.005-1.030) Urine Protein (NEG) mg/dl Urine Glucose (UA) (NEG) mg/dL Urine Ketones (NEG) Urine Occult Blood (NEG) Urine Nitrate (NEG) Urine Bilirubin (NEG) Urine Urobilinogen (0.2) EU/dL Ur Leukocyte Esterase (NEG) Urine RBC (NONE) /hpf Urine WBC (NONE) Ur Squamous Epith Cells (NONE) Ur Renal Epithelial Cell (NONE) Urine Crystals Urine Bacteria (NONE) Urine Casts (NONE) Urine Mucus (NONE) Urine Trichomonas (NONE) Urine Yeast (NONE) Ur Culture Indicated? Blood Type Antibody Screen History and Physical pertinent to Admission: Past Medical History Medical History: 1. Hypertension. 2. Glaucoma Surgical History: 1. Hysterectomy. 2. Appendectomy. 3. Cataracts Pertinent Family History: No family history of heart disease. Past Social History: Does not smoke or drink. . Had 6 children but 3 have passed on. Tobacco Use: Never Smoker Do you dip or chew tobacco: No Substance Use Type: None Alcohol Use: None Course of Hospitalization: Is a very nice 81-year-old female who tripped while going to the [employer] for a daily exercise routine*having pain over the left hip. Was admitted to the hospital for left hip fracture and was taking care of by Dr. Resendiz orthopedic surgery for repair. Patient did well postop and is doing well physical therapy recommended that she could be discharged home if patient wanted to. I did talk to the patient and also she agreed with this we will talk to the patient's daughter who she lives with to see if she if she is ready for the patient to transfer back home. Daughter was ok with pt going home On the date of discharge, the patient was examined: Gen.: No acute distress, alert, nontoxic Heart: Regular rate and rhythm, no murmurs, clicks, gallops, or rubs Lungs: Clear to auscultation bilaterally, breathing is nonlabored Abdomen/GI: Normal tones on auscultation, soft, nontender, nondistended Musculoskeletal/extremities: No clubbing, cyanosis, or edema Vitals reviewed and are listed below Vital Signs (24 hrs) Temp Pulse Pulse Resp BP BP Pulse Ox 05/21/17 11:15 97.8 F 73 18 174/93 97 05/21/17 07:55 98.2 F 79 18 172/95 97 05/21/17 07:00 18 05/21/17 05:36 91 05/21/17 05:00 98.0 F 78 22 174/90 98 05/21/17 01:00 97.6 F 76 22 180/98 94 05/20/17 20:02 97.7 F 77 20 164/84 94 05/20/17 19:00 89 77 20 05/20/17 16:54 98.8 F 83 18 178/93 94 Assessment and Plan: 1. As per discharge assessments above 2. Disposition: Home 3. Condition on discharge, stable and improved. 4. Diet: regular diet 5. Activities: resume normal activities 6. Follow-Up: 1. PCP and ortho annabelle making apt 2. 7. Medications at the Time of Discharge: Home Medications Medication Instructions Recorded Confirmed Type Latanoprost [Xalatan] 1 drop OP QHS drop 04/19/16 05/16/17 History Losartan Potassium 1 tab PO DAILY tab 04/19/16 05/16/17 History 8. Time, care, counseling and coordination of care for this discharge is greater than 30 minutes. Exam - Vitals Vital Signs: Vital Signs Temperature 97.8 F Temperature Source Temporal Artery Scan Pulse Rate [Pulse Oximeter] 73 Pulse Rate [Pulse Oximeter 89 Bilateral Radial] Pulse Rate 82 Respiratory Rate 18 Blood Pressure [Right Arm] 174/93 Blood Pressure [Left Arm] 178/93 Blood Pressure 174/88 Pulse Ox 97 Oxygen Flow Rate 1 Oxygen Flow Rate 2 Oxygen Delivery Method Nasal Cannula Height 5 ft 2 in Weight 51.71 kg
--- NOTE | 2017-05-21 14:57 | OT AM DAY ---
Diagnosis : Left Hip Pinning AM - Occupational Therapy S: The patient reports that she is doing well. She was in the bathroom upon the therapist's arrival. O: Today the patient was able to complete lower extremity dressing task with use of oracle apex developer and verbal cues in order to dress specific legs independently and also verbal cues on how to use the oracle apex developer independently. The patient was able to don and doff socks with sock aide with min assist. She completed functional transfers with stand by assistance and stood at sink x5 minutes to improve standing abilities and dynamic ADLs with stand by assist. The OT gave the patient a walker tray as she will be at home by herself. The patient's daughter works timekeeper and she will need to be able to transport items in her home such as drinks and food with use of walker. We went through safety and how to complete putting the tray up and down. A: The patient is improving with her abilities. The walker tray will be beneficial so that she does not have to carry items while using her walker. P: Continue seeing patient BID during the week and one time per day over the weekend for upper extremity strengthening, ADLs, and overall functional mobility. JHOANAD
--- NOTE | 2017-05-21 16:50 | PT.PROG ---
Progress Note Progress Note: S. Patient stated that she is feeling good this afternoon. O. Patient ambulated 175 feet to the therapy gym. where she had heat to her hip and performed exercises in the form of; heel slides, quad sets, ankle pumps, short arc quads, seated heel toe raises, long arc quads, and sit to stands all x10. Patient ascended and descended 4 stairs then ambulated 175 feet back up to her room where she was left in her chair with alarm and call light. A. Patient required mod verbal cues and assist with the walker during stair training. She continues to struggle with weakness and balance deficits and would continue to benefit from outpatient therapy. P. Continue POC.
[2017-05-21 17:19] VITALS: TEMP 98.2
--- NOTE | 2017-05-22 14:38 | OT PM DAY ---
Diagnosis : Left Hip Pinning PM - Occupational Therapy S: The patient reports she is feeling like she could go home. O: Today the patient learned how to doff her socks using the disassembler product and she did so independently. The patient donned her pants independently this afternoon using the disassembler product and donned her socks independently. The patient also worked on functional standing activities at the sink. She was instructed on how to place her hands on a stable surface before reaching for any items or when standing for longer periods of time. We worked on walker tray management and educated the patient on putting her walker tray up independently, placing items on the tray, and placing items in lower and higher positions. A: The patient did much better than this morning with her dressing skills and use of adaptive equipment. The patient was independent with ADLs and with use of her walker tray. P: Continue seeing patient BID during the week and one time per day over the weekend for upper extremity strengthening, ADLs, and overall functional mobility. GISSELL
== END 2017-05-21 17:58 | disposition home or self-care (01) | DRG 481 ==
LOC: ER 12:25 → MED/SURG 13:33 → OPS 18:36 → MED/SURG 21:06
PROVIDERS: ADMIT Family Medicine; ATTEND Family Medicine
PROC: 0QS704Z Reposition Left Upper Femur with Internal Fixation Device, Open Approach (ICD-10-PCS; principal; 2017-05-16 18:30)
DX: S72.002A Fracture of unspecified part of neck of left femur, initial encounter for closed fracture (principal); S72.012A Unspecified intracapsular fracture of left femur, initial encounter for closed fracture; D62 Acute posthemorrhagic anemia; W18.39XA Other fall on same level, initial encounter; Y93.01 Activity, walking, marching and hiking; Y92.480 Sidewalk as the place of occurrence of the external cause; H40.9 Unspecified glaucoma; I10 Essential (primary) hypertension
CPT/HCPCS: 73502; 80053; 85025; 85610; 99284 ×2; J2270; J2405; 36415; 73100; 76000; 80048; 81001; 81003; 86850; 86900; 86901; 87641; 93005; 93010; 94150; 94761; 97010; 97110; 97161; 97166; 97530; 97535; A4216; J0690; J1650; J1885; J2250; J2765; J7030; J7120